=== PATIENT | female | born 1980 | race Caucasian/White ===

== ENCOUNTER 2020-03-22 13:28 | Emergency (ER) | payer BC ==
[2020-03-22] MEDS ORDERED: Ondansetron 4 MG Tab.DIS PO PRN (13:43)
[2020-03-22] MEDS ORDERED: Ondansetron 4 MG Tab.DIS ONE (14:00)
--- NOTE | 2020-03-22 14:16 | EDM.PDOC ---
ED HPI GENERAL MEDICAL PROBLEM - General Chief Complaint: General Stated Complaint: NAUSEA AND VOMITING Time Seen by Provider: 03/22/20 13:40 Source of Information: Reports: Patient, RN Notes Reviewed History Limitations: Reports: No Limitations - History of Present Illness INITIAL COMMENTS - FREE TEXT/NARRATIVE: This patient presents to the ED for evaluation of vomiting. She states the vomiting began 2 days ago and has been rather persistent with "countless" episodes in the past 24 hours. She has had some looser stools but not "really" diarrhea, no fever. She states she has been unable to keep anything down including water. She has been having some cramping, mid abdominal pain as well. LMP is unknown, delivered infant 08/2019 and has not had her periods resume; states she has an IUD and "knows for sure sure" she is not . Last urine output was earlier this morning. She denies other concerns or complaints. She denies recent illnesses including fever, cough, shortness of breath, or sore throat. Onset: Gradual Onset Date: 03/20/20 Duration: Colic, Constant Location: Reports: Abdomen Quality: Reports: Other (cramping) Severity: Moderate Improves with: Reports: None Worsens with: Reports: None Associated Symptoms: Reports: Loss of Appetite, Nausea/Vomiting. Denies: Chest Pain, Cough, Diaphoresis, Fever/Chills, Headaches, Shortness of Breath, Syncope , Weakness - Related Data Allergies Allergy/AdvReac Type Severity Reaction Status Date / Time erythromycin base Allergy Rash Verified 03/22/20 14:23 Sulfa (Sulfonamide Allergy Rash Verified 03/22/20 14:22 Antibiotics) Home Meds: Home Meds Levothyroxine 75 mcg PO ACBREAKFAST 03/22/20 [History] ED ROS GENERAL - Review of Systems Review Of Systems: Comprehensive ROS is negative, except as noted in HPI. ED EXAM, GENERAL - Physical Exam Exam: See Below Exam Limited By: No Limitations General Appearance: Alert, No Apparent Distress Eye Exam: Bilateral Eye: PERRL Ears: Normal External Exam, Normal TMs Nose: Normal Inspection Throat/Mouth: Normal Inspection, Normal Oropharynx Head: Atraumatic, Normocephalic Neck: Normal Inspection, Full Range of Motion Respiratory/Chest: No Respiratory Distress, Lungs Clear, Normal Breath Sounds, No Accessory Muscle Use GI/Abdominal: Normal Bowel Sounds, Soft, No Distention, Tender (in all quadrants with most signifiant pain in mid upper abdomen) Extremities: Normal Capillary Refill Psychiatric: Normal Affect Skin Exam: Warm, Dry, Intact Course - Vital Signs Last Recorded V/S: Last Vital Signs Temp 36.4 C 03/22/20 13:30 Pulse 96 03/22/20 13:30 Resp 20 03/22/20 13:30 BP 140/99 H 03/22/20 13:30 Pulse Ox 98 03/22/20 13:30 - Orders/Labs/Meds Orders: Active Orders 24 hr Category Date Time Status Abdomen Pelvis wo Cont [CT] Stat Exams 03/22/20 13:43 Taken Ondansetron [Zofran ODT] Med 03/22/20 13:43 Active 4 mg PO Q4H PRN Medication Orders Ondansetron HCl (Zofran Odt) 4 mg PO Q4H PRN PRN Reason: Nausea/Vomiting Last Admin: 03/22/20 13:52 Dose: 4 mg Meds: Medications Generic Name Dose Route Start Last Admin Trade Name Freq PRN Reason Stop Dose Admin Ondansetron HCl 4 mg 03/22/20 13:43 03/22/20 13:52 Zofran Odt PO 4 mg Q4H PRN Administration Nausea/Vomiting - Re-Assessments/Exams Free Text/Narrative Re-Assessment/Exam: 03/22/20 14:38 This patient presents with GI symptoms as detailed above. A broad differential diagnosis was considered including appendicitis, gall bladder disease, pancreatitis, diverticular disease, bowel obstruction, volvulus, intussusception, gastritis and peptic ulcer disease, gastro intestinal infection , inflammatory bowel disease, peritonitis, kidney stones, UTI, related complications, PID and ovarian cyst, mesenteric lymphadenopathy, IBS. The workup in the ED is at this point negative. No definitive etiology for the patients pain is found at this point and my suspicion of an intraabdominal catastrophe or other worrisome etiology is low. Imaging studies show no acute findings. At this time there is no indication for admission for serial exams and further workup. Patient is hemodynamically stable in the ED. Plan is home with Zofran. She should return for fevers greater than 102, increasing pain, other new symptoms develop. Abdominal pain instructions given to patient. Questions were answered. 03/22/20 14:40 Departure - Departure Time of Disposition: 14:40 Disposition: Home, Self-Care 01 Condition: Good Clinical Impression: Gastroenteritis - Discharge Information Instructions: Viral Gastroenteritis, Adult Referrals: PCP,None [Primary Care Provider] - Forms: ED Department Discharge Additional Instructions: Discharge home. Zofran 4mg 1 tablet every 6 hours. Drink plenty of fluids clear liquid diet today and advance diet as tolerated tomorrow. Follow up with [facility] [employer]. Sepsis Event Note - Evaluation Sepsis Screening Result: No Definite Risk - Focused Exam Vital Signs: Vital Signs Temp Pulse Resp BP Pulse Ox 03/22/20 13:30 36.4 C 96 20 140/99 H 98 Date Exam was Performed: 03/22/20 Time Exam was Performed: 14:36 - My Orders Last 24 Hours: My Active Orders 03/22/20 13:43 Abdomen Pelvis wo Cont [CT] Stat Ondansetron [Zofran ODT] 4 mg PO Q4H PRN - Assessment/Plan Last 24 Hours: My Active Orders 03/22/20 13:43 Abdomen Pelvis wo Cont [CT] Stat Ondansetron [Zofran ODT] 4 mg PO Q4H PRN
--- NOTE | 2020-03-23 11:11 | CT ---
DATE OF SERVICE: 03/22/20 CLINICAL DATA: abd pain UNENHANCED ABDOMEN AND PELVIC CT: Multislice acquisition through the abdomen and pelvis without IV or oral contrast was performed. No priors. The lung bases are clear. The heart size is normal. The unenhanced liver appears normal. No focal hepatic lesions. The gallbladder appears normal. The spleen appears normal. There is mild soft tissue fullness of the pancreas. There is questionable mild peripancreatic fat stranding. Pancreatitis should be considered. There is a subtle low density lesion within the pancreas suggesting focal pancreatitis. I cannot exclude a cystic lesion. Dedicated pancreatic CT with contrast enhancement is recommended. The right and left adrenals appear normal. The right and left kidneys appear normal. No nephrocalcinosis or nephrolithiasis. No hydronephrosis or hydroureter. There is an IUD located within the uterus. No evidence of appendicitis. There are multiple fluid filled, nondistended loops of small bowel within the mid and lower abdomen. They do contain air fluid levels. Enteritis should be considered. Follow-up imaging is recommended if clinically indicated. No free air. No free fluid. No dilated loops of bowel. No adenopathy. No aortic aneurysm. There is diffuse gastric wall thickening. This is probably related to nondistention. Gastritis should be considered. The bladder is partially fluid filled. It appears normal. There is a small umbilical hernia containing fat. No other significant findings. IMPRESSION: Multiple findings as discussed above. See above recommendation. [id number] [facility]
== END 2020-03-22 14:35 | disposition home or self-care (01) ==
LOC: LB.ED 13:28
DX: K52.9 Noninfective gastroenteritis and colitis, unspecified (principal); Z88.1 Allergy status to other antibiotic agents; Z88.2 Allergy status to sulfonamides
CPT/HCPCS: 74176; 99284; A9270; 99283

== ENCOUNTER 2024-10-31 13:24 | Emergency (ER) | payer OTHER ==
[2024-10-31] MEDS: methylPREDNISolone Sodium Succinate 40 MG/1 ML SDV IVPUSH ONE (14:13)
[2024-10-31] MEDS: Sodium Chloride 0.9% 1,000 ML IV SCH (14:16)
[2024-10-31 14:17] LABS: INFLUENZA A NAA POSITIVE (NEGATIVE); INFLUENZA B NAA NEGATIVE (NEGATIVE); RESPIRATORY SYNCYTIAL VIR NAA NEGATIVE (NEGATIVE)
[2024-10-31] MEDS ORDERED: Albuterol/Ipratropium 3.0-0.5 MG/3 ML Neb Soln ONE (14:21)
[2024-10-31] MEDS: Albuterol/Ipratropium 3.0-0.5 MG/3 ML Neb Soln NEB SCH (14:22)
[2024-10-31 14:26] LABS: CORONAVIRUS COVID-19 NAA NEGATIVE (NEGATIVE)
[2024-10-31] MEDS: Albuterol 0.083% 2.5 MG/3 ML Neb Soln NEB ONE (14:51)
== END 2024-10-31 16:05 | disposition home or self-care (01) ==
LOC: LB.ED 13:24
DX: J10.1 Influenza due to other identified influenza virus with other respiratory manifestations (principal); Z88.1 Allergy status to other antibiotic agents; Z88.2 Allergy status to sulfonamides; Z79.899 Other long term (current) drug therapy; Z79.890 Hormone replacement therapy
CPT/HCPCS: 0241U; 71045; 87651-QW; 94640; 96361; 96374; 99284-25; J2919; J7030; J7620

== ENCOUNTER 2024-10-31 19:40 | Emergency (ER) | payer OTHER ==
[2024-10-31] MEDS: Ketorolac 15 MG/ML SDV IM ONE (20:00)
[2024-10-31] MEDS: guaiFENesin 600 MG Tab.ER PO ONE (20:01)
[2024-10-31 20:15] LABS: HEMATOCRIT 36.6 % (37.0-47.0); MEAN CORPUSCULAR HEMOGLOBIN 29.1 pg (27.0-32.0); MEAN CORPUSCULAR HGB CONC 35.5 g/dL (31.0-35.0); MEAN PLATELET VOLUME 10.5 fL (6.0-10.0); RED BLOOD CELL COUNT 4.46 M/uL (3.80-5.80); RED CELL DISTRIBUTION WIDTH 11.9 % (11.0-16.0); WHITE BLOOD CELL COUNT,WBC 5.2 K/uL (4.0-11.0)
[2024-10-31 20:32] LABS: BLOOD UREA NITROGEN,BUN 6 mg/dL (8-26); BUN/CREATININE RATIO 8.3 (6-25); CALCIUM 9.1 mg/dL (8.5-10.1); CARBON DIOXIDE,CO2 24.3 mmol/L (21.0-32.0); CREATININE 0.72 mg/dL (0.55-1.02); ESTIMATED GFR 107 mL/min (>60); GLUCOSE RANDOM 147 mg/dL (74-100); POTASSIUM,K 4.1 mmol/L (3.5-5.1); SODIUM,NA 126 mmol/L (136-145)
[2024-10-31 20:33] LABS: ANION GAP 17.8 mmol/L (5.0-15.0)
[2024-10-31 20:39] LABS: CHLORIDE,CL 88 mmol/L (98-107)
[2024-10-31] MEDS ORDERED: Sodium Chloride 0.9% 10 ML Syringe FLUSH PRN (20:43)
[2024-10-31 20:48] LABS: TROPONIN I HIGH SENSITIVITY < 4.0 pg/ml (<=60.4)
[2024-10-31] MEDS: Sodium Chloride 0.9% 1,000 ML IV ONE (20:50)
[2024-10-31] MEDS: Oseltamivir 75 MG Cap PO SCH (21:39)
[2024-10-31 22:28] LABS: ANION GAP 16.5 mmol/L (5.0-15.0); BUN/CREATININE RATIO 7.9 (6-25); CALCIUM 9.3 mg/dL (8.5-10.1); CREATININE 0.76 mg/dL (0.55-1.02); EST CRCL DRUG DOSING (CG) 83.27 mL/min; POTASSIUM,K 4.5 mmol/L (3.5-5.1)
== END 2024-10-31 22:50 | disposition home or self-care (01) ==
LOC: LB.ED 19:40
DX: J10.1 Influenza due to other identified influenza virus with other respiratory manifestations (principal); I10 Essential (primary) hypertension; E03.9 Hypothyroidism, unspecified; Z88.1 Allergy status to other antibiotic agents; Z88.2 Allergy status to sulfonamides; Z79.890 Hormone replacement therapy; Z79.51 Long term (current) use of inhaled steroids; Z79.899 Other long term (current) drug therapy
CPT/HCPCS: 0241U; 36415; 71045; 80048; 84484; 85027; 85379; 87651-QW; 94640; 96360; 96361; 96372; 96374; 99283; 99284-25; A9270-GY; J1885; J2919; J7030; J7620